=== PATIENT | male | born 1985 | race Hispanic/Latino ===

== ENCOUNTER 2023-09-14 13:57 | Emergency (ER) | payer OTHER ==
[~2023-09-14] VITALS: Ht 165.1 cm; Wt 120.2 kg
[2023-09-14] MEDS ORDERED: LIDOCAINE HCL 1% 20 ML VIAL INJ SCH (14:30)
[2023-09-14] MEDS ORDERED: ACETAMINOPHEN 500 MG TABLET PO ONE (14:30)
[2023-09-14] MEDS ORDERED: IBUP-2077 PO (15:40)
[2023-09-14 15:53] VITALS: BP 131/76; PULSE 78; RESP 18; O2SAT 99
== END 2023-09-14 16:02 | disposition home or self-care (01) ==
LOC: EDH 13:57 → EEVIPCON 13:57 → EDH 16:02
DX: S01.01XA Laceration without foreign body of scalp, initial encounter (principal); W50.0XXA Accidental hit or strike by another person, initial encounter; Y93.89 Activity, other specified; Y92.89 Other specified places as the place of occurrence of the external cause; Y99.8 Other external cause status
CPT/HCPCS: 12001; 70450